=== PATIENT | female | born 1950 | race Hispanic/Latino ===

== ENCOUNTER 2018-09-07 10:19 | Emergency (ER) | payer MEDICARE ==
[2018-09-07] MEDS ORDERED: ACETAMINOPHEN EXTRA STRENGTH 500 MG TABLET ONE (10:35)
== END 2018-09-07 12:41 | disposition home or self-care (01) ==
LOC: EDH 10:19
DX: S93.402A Sprain of unspecified ligament of left ankle, initial encounter (principal); I10 Essential (primary) hypertension; E78.5 Hyperlipidemia, unspecified; W18.39XA Other fall on same level, initial encounter; Y93.89 Activity, other specified; Y92.89 Other specified places as the place of occurrence of the external cause; Y99.8 Other external cause status
CPT/HCPCS: 73610

== ENCOUNTER 2021-11-01 14:23 | Emergency (ER) | payer OTHER, MEDICARE ==
[~2021-11-01] VITALS: Ht 157.5 cm; Wt 122.5 kg
[2021-11-01 14:27] VITALS: BP 152/77
[2021-11-01] MEDS ORDERED: KETOROLAC 30MG VIAL (30MG/ML) IM ONE (14:45)
[2021-11-01] MEDS ORDERED: HYDROCODONE/ACETAMINOPHEN 5/325 MG TAB PO ONE (14:45)
[2021-11-01] MEDS ORDERED: TRAM1TAB2 PO (15:40)
== END 2021-11-01 16:04 | disposition home or self-care (01) ==
LOC: EDH 14:23
DX: S42.201A Unspecified fracture of upper end of right humerus, initial encounter for closed fracture (principal); I10 Essential (primary) hypertension; E78.00 Pure hypercholesterolemia, unspecified; E66.01 Morbid (severe) obesity due to excess calories; Z68.42 Body mass index [BMI] 45.0-49.9, adult; W01.0XXA Fall on same level from slipping, tripping and stumbling without subsequent striking against object, initial encounter; Y93.89 Activity, other specified; Y92.89 Other specified places as the place of occurrence of the external cause; Y99.8 Other external cause status
CPT/HCPCS: 71045; 73030

== ENCOUNTER → 2022-04-06 | Outpatient (CLI) | payer OTHER, MEDICARE ==
[~2022-04-06] MED LIST: TRAM1TAB2 PO
== END | disposition home or self-care (01) ==
LOC: SHCH 08:36
PROVIDERS: ATTEND Internal Medicine Cardiovascular Disease
DX: I87.2 Venous insufficiency (chronic) (peripheral) (principal)
CPT/HCPCS: 93970

== ENCOUNTER 2022-06-28 07:55 | Emergency (ER) | payer OTHER, MEDICARE ==
[~2022-06-28] VITALS: Ht 154.9 cm; Wt 97.1 kg
[2022-06-28 08:26] LABS: APPEARANCE,URINE CLOUDY (CLEAR); BILIRUBIN,URINE NEGATIVE (NEGATIVE); COLOR,URINE YELLOW (YELLOW); GLUCOSE, URINE (UA) NEGATIVE (NEGATIVE); KETONES,URINE NEGATIVE (NEGATIVE); LEUKOCYTE ESTERASE ,URINE 75 Leu/uL (NEGATIVE); NITRATE,URINE NEGATIVE (NEGATIVE); OCCULT BLOOD,URINE NEGATIVE (NEGATIVE); PROTEIN,URINE 20 mg/dL (NEGATIVE); UROBILINOGEN,URINE 0.2 mg/dL (0.2-1.0)
[2022-06-28] MEDS ORDERED: ORPHENADRINE CITRATE 30 MG/ML ML IM ONE (08:30)
[2022-06-28] MEDS ORDERED: ONDANSETRON ODT 4MG TAB SL ONE (08:30)
[2022-06-28] MEDS ORDERED: KETOROLAC 60 MG VIAL (30MG/ML) IM ONE (08:30)
[2022-06-28] MEDS ORDERED: MORPHINE 4 MG SYG IM ONE (08:30)
[2022-06-28 08:32] LABS: MUCUS,URINE RARE LPF (None Seen); SQUAMOUS EPITHELIAL CELL,UR MOD /HPF (0-2)
[2022-06-28] MEDS ORDERED: CYCL10TA16 PO (09:18)
[2022-06-28] MEDS ORDERED: NAPR-1180 PO (09:18)
[2022-06-28] MEDS ORDERED: OXYC-38 PO (09:18)
[2022-06-28 09:34] VITALS: BP 128/72
== END 2022-06-28 09:38 | disposition home or self-care (01) ==
LOC: EDH 07:55
DX: M54.50 Low back pain, unspecified (principal); I10 Essential (primary) hypertension; E78.00 Pure hypercholesterolemia, unspecified; E66.09 Other obesity due to excess calories; Z68.41 Body mass index [BMI] 40.0-44.9, adult; Z98.890 Other specified postprocedural states
CPT/HCPCS: 99284; 87088; 81001; 96372 ×3; J2270; J1885

== ENCOUNTER → 2024-06-23 | Outpatient (CLI) | payer OTHER, MEDICARE ==
[~2024-06-23] MED LIST changes: +CYCL10TA16 PO; +NAPR-1180 PO; +OXYC-38 PO
== END | disposition home or self-care (01) ==
LOC: WHH 08:26
PROVIDERS: ATTEND Podiatrist Foot & Ankle Surgery
DX: L30.9 Dermatitis, unspecified (principal); I11.0 Hypertensive heart disease with heart failure; I50.9 Heart failure, unspecified; E78.5 Hyperlipidemia, unspecified; B35.3 Tinea pedis
CPT/HCPCS: G0463